=== PATIENT | female | born 1985 | race Caucasian/White ===

== ENCOUNTER 2021-05-05 17:28 | Emergency (ER) | payer OTHER ==
[~2021-05-05] VITALS: Ht 170.2 cm; Wt 63.5 kg
--- NOTE | 2021-05-05 17:36 | NUR ---
Patient to ER bed 06 to gown for evaluation. Side rails up.
--- NOTE | 2021-05-05 17:42 | NUR ---
PT COMES TO ER WITH C/O VAGINAL BLEEDING /CRAMPING X 3-4 DAYS, APPROX 2 PADS A DAY. REPORTS BEING 5 WEEKS , WENT THIS WEEKEND TO [facility], WAS GIVEN AN US AND LAB WORK. HCG-62, 2 DAYS LATER HCG-85. PT IS G-1,P-0 LMP-03/27/21 PT IN NAD. RESP EVEN AND UNLABORED, ON RA @99%, CRAMPING 1/10 AT THIS TIME. SKIN W/D/I.
[2021-05-05 17:44] VITALS: BP_SYST 139
--- NOTE | 2021-05-05 17:46 | NUR ---
DR GALAN AT BEDSIDE FOR EXAM
--- NOTE | 2021-05-05 18:47 | NUR ---
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
[2021-05-05 19:04] LABS: BILIRUBIN,URINE NEGATIVE (NEGATIVE); BLOOD, URINE 2+ (NEGATIVE); CLARITY/URINE CLEAR (CLEAR); COLOR,URINE YELLOW (YELLOW); GLUCOSE,URINE NEGATIVE (NEGATIVE); KETONES,URINE TRACE (NEGATIVE); LEUKOCYTE ESTERASE ,URINE NEGATIVE (NEGATIVE); NITRITE, URINE NEGATIVE (NEGATIVE); PROTEIN URINE NEGATIVE (NEGATIVE); UROBILINOGEN,URINE 0.2 (0.2-1.0)
[2021-05-05 19:28] LABS: BASOPHILS % (AUTO) 0.5 % (0.0-2.0); EOSINOPHILS # (AUTO) 0.1 K/uL (0.0-0.4); EOSINOPHILS % (AUTO) 0.9 % (0.0-4.0); HEMATOCRIT 38.8 % (36-48); HEMOGLOBIN 13.2 g/dL (12.0-16.0); LYMPHOCYTES # (AUTO) 2.1 K/uL (1.0-5.5); LYMPHOCYTES % (AUTO) 27.2 % (20.5-51.5); MEAN CORPUSCULAR HEMOGLOBIN 30 pg (27-31); MEAN CORPUSCULAR HGB CONC 34 % (32-36); MEAN CORPUSCULAR VOLUME 87 fL (79.0-98.0); MONOCYTES # (AUTO) 0.6 K/uL (0.0-1.0); MONOCYTES % (AUTO) 7.7 % (1.7-9.3); NEUTROPHILS # (AUTO) 4.9 K/uL (1.8-7.7); NEUTROPHILS % (AUTO) 63.7 % (40.0-70.0); PLATELET COUNT (AUTO) 201 K/uL (130-430); RED BLOOD CELL COUNT(AUTO) 4.44 MIL/uL (4.2-6.2); RED CELL DISTRIBUTION WIDTH 12.2 % (9.0-15.0); WHITE BLOOD COUNT (AUTO) 7.7 K/uL (4.8-10.8)
--- NOTE | 2021-05-05 19:48 | NUR ---
PATIENT LYING IN BED, NO C/O PAIN OR S/S OF DISTRESS. PATIENT CHEST RISE AND FALL SYMMETRICAL. PATIENT RESTING COMFORTABLY, BED IN LOW AND LOCKED POSITION, 3 BED RAILS UP.
[2021-05-05 19:51] LABS: BACTERIA,URINE FEW /HPF (None Seen); MUCUS,URINE 1+ /LPF (None Seen); WBC,URINE 0-3 /HPF (0-3)
[2021-05-05 20:50] VITALS: BP_SYST 122
--- NOTE | 2021-05-05 20:55 | NUR ---
Note tariq in ED - 05/05/21 at 2056 by [email or web address] PATIENT A/OX4. PATIENT VERBALIZED UNDERSTANDING OF DISCHARGE EDUCATION, NO FURTHER QUESTIONS. PATIENT LEFT WITH ALL BELONGINGS, AND ALL DISCHARGE PEPERWORK. PATIENT WALKS WITH STRONG GAIT.
== END 2021-05-05 20:50 | disposition home or self-care (01) ==
LOC: SED 17:28
DX: O20.9 Hemorrhage in early pregnancy, unspecified (principal); Z3A.01 Less than 8 weeks gestation of pregnancy
CPT/HCPCS: 36415; 76801; 76817; 81000; 81025; 84702; 85025; 86900; 86901; 99284

== ENCOUNTER 2021-05-08 12:25 | Emergency (ER) | payer OTHER ==
[~2021-05-08] VITALS: Ht 170.2 cm; Wt 63.5 kg
[2021-05-08 12:25] VITALS: BP_SYST 111
--- NOTE | 2021-05-08 12:30 | NUR ---
Patient triaged and placed in waiting room. VSS and patient appears in no acute distress at this time. Accompanied by SPOUSE, awaiting available bed, and MD notified of need for MSE.
--- NOTE | 2021-05-08 12:49 | NUR ---
DR DIANE OUT TO SEE PT.
--- NOTE | 2021-05-08 13:30 | NUR ---
PT STATES SHE IS FINE WAITING IN WAITING ROOM
--- NOTE | 2021-05-08 14:01 | NUR ---
DR GALAN OUT TO SPEAK WITH PT REGARDING LAB TESTS
[2021-05-08] MEDS ORDERED: HYDR-3917 PO (14:35)
[2021-05-08] MEDS ORDERED: MISO200T PO (14:35)
--- NOTE | 2021-05-08 14:50 | NUR ---
Patient given written and verbal discharge instructions and verbalizes understanding. ER MD discussed with patient the results and treatment provided. Patient in stable condition. ID arm band removed. Rx of NORCO, CYTOTEX given. Patient educated on pain management and to follow up with PMD. Pain Scale 0/10. Opportunity for questions provided and answered. Medication side effect fact sheet provided.
== END 2021-05-08 14:50 | disposition home or self-care (01) ==
LOC: SED 12:25
DX: O03.9 Complete or unspecified spontaneous abortion without complication (principal); Z79.899 Other long term (current) drug therapy
CPT/HCPCS: 36415; 84702; 99283

== ENCOUNTER 2023-09-25 15:56 | Emergency (ER) | payer OTHER ==
[~2023-09-25] VITALS: Ht 170.2 cm; Wt 68.0 kg
[~2023-09-25 15:56] MED LIST: HYDR-3917 PO; MISO200T PO
[2023-09-25 15:58] VITALS: BP_SYST 138; PULSE 102; RESP 18; TEMP 97.6; O2SAT 99
[2023-09-25 18:38] LABS: BASOPHILS % (AUTO) 0.4 % (0.0-2.0); EOSINOPHILS # (AUTO) 0.1 K/uL (0.0-0.4); EOSINOPHILS % (AUTO) 0.5 % (0.0-4.0); HEMATOCRIT 41.7 % (36-48); HEMOGLOBIN 14.3 g/dL (12.0-16.0); LYMPHOCYTES # (AUTO) 1.8 K/uL (1.0-5.5); LYMPHOCYTES % (AUTO) 16.3 % (20.5-51.5); MEAN CORPUSCULAR HEMOGLOBIN 30 pg (27-31); MEAN CORPUSCULAR HGB CONC 34 % (32-36); MEAN CORPUSCULAR VOLUME 87 fL (79.0-98.0); MONOCYTES # (AUTO) 0.7 K/uL (0.0-1.0); MONOCYTES % (AUTO) 5.9 % (1.7-9.3); NEUTROPHILS # (AUTO) 8.5 K/uL (1.8-7.7); NEUTROPHILS % (AUTO) 76.9 % (40.0-70.0); PLATELET COUNT (AUTO) 243 K/uL (130-430); RED BLOOD CELL COUNT(AUTO) 4.78 MIL/uL (4.2-6.2); RED CELL DISTRIBUTION WIDTH 13.1 % (9.0-15.0); WHITE BLOOD COUNT (AUTO) 11.1 K/uL (4.8-10.8)
[2023-09-25 19:00] LABS: SERUM HCG (QUALITATIVE) NEGATIVE (NEGATIVE)
[2023-09-25 19:13] LABS: ANION GAP 9 (5-15); CALCIUM 9.7 mg/dL (8.4-11.0); CARBON DIOXIDE 29 mmol/L (23-29); CHLORIDE 104 mmol/L (98-107); CREATININE 0.65 mg/dL (0.55-1.30); GFR AFRICAN AMERICAN 133 mL/min (>90); GFR NON AFRICAN-AMERICAN 110 mL/min (>90); GLUCOSE 99 mg/dL (74-106); POTASSIUM 3.9 mmol/L (3.5-5.1); SODIUM SERUM 142 mmol/L (136-145); THYROID STIMULATING HORMONE 1.41 uIu/mL (0.36-3.74); UREA NITROGEN, BLOOD 8 mg/dL (8-21)
[2023-09-25] MEDS ORDERED: VIS25 PO (19:20)
[2023-09-25 19:33] VITALS: BP_SYST 121; PULSE 87; RESP 18; O2SAT 98
[2023-09-25 19:41] LABS: BARBITURATE, URINE NEGATIVE (NEG <=200); BENZODIAZEPINE, URINE NEGATIVE (NEG <=150); CANNABINOID, URINE NEGATIVE (NEG <=50); COCAINE, URINE NEGATIVE (NEG <=150); METHAMPHETAMINES SCREEN,URINE NEGATIVE (NEG <=500); OPIATE, URINE NEGATIVE (NEG <=100); PHENCYCLIDINE SCREEN,URINE NEGATIVE (NEG <=25); UR TRICYCLIC ANTIDEPRESSANTS NEGATIVE (NEG <=300); URINE AMPHETAMINE NEGATIVE (NEG <=500); URINE METHADONE NEGATIVE (NEG <=200); URINE OXYCODONE SCREEN NEGATIVE (NEG <=100)
== END 2023-09-25 19:33 | disposition home or self-care (01) ==
LOC: SED 15:56
DX: F41.9 Anxiety disorder, unspecified (principal); R00.2 Palpitations; F41.0 Panic disorder [episodic paroxysmal anxiety]; R06.4 Hyperventilation; R42 Dizziness and giddiness; Z79.899 Other long term (current) drug therapy; Z79.2 Long term (current) use of antibiotics
CPT/HCPCS: 36415; 80048; 80307; 81025; 84443; 84484; 84703; 85025; 93005; 99284